=== PATIENT | male | born 1975 | race Caucasian/White ===

== ENCOUNTER 2021-01-18 11:23 | Emergency (ER) | payer SELFPAY ==
[~2021-01-18] VITALS: Ht 177.8 cm; Wt 113.4 kg
[2021-01-18] MEDS ORDERED: IV NORMAL SALINE 500 ML BAG IV ONE (11:45)
[2021-01-18 11:58] LABS: HEMATOCRIT 45.9 % (36.7-47.1); MEAN CORPUSCULAR HEMOGLOBIN 27.3 uug (23.8-33.4); PLATELET COUNT (AUTO) 113 K/uL (152-348)
[2021-01-18 12:05] LABS: CREATININE 1.1 mg/dL (0.6-1.3); POTASSIUM 3.2 mmol/L (3.5-5.1)
[2021-01-18 12:08] LABS: NEUTROPHILS % (MANUAL) 0 % (42-75)
[2021-01-18 12:11] LABS: BILIRUBIN,TOTAL 0.8 mg/dL (0.2-1.0); TOTAL PROTEIN, SERUM 7.9 g/dL (6.4-8.2)
[2021-01-18] MEDS ORDERED: POTASSIUM BICARBONATE/CIT AC 25 MEQ TABLET.EFF PO ONE (12:15)
[2021-01-18] MEDS ORDERED: POTASSIUM BICARBONATE/CIT AC 25 MEQ TABLET.EFF ONE (12:25)
[2021-01-18] MEDS ORDERED: SWABABLE VALVE TRANSFER SET EA MC ONE (13:25)
[2021-01-18] MEDS ORDERED: IV NORMAL SALINE 250 ML IV ONE (13:26)
[2021-01-18] MEDS ORDERED: IOHEXOL 350 100 ML INFUS..BTL ONE (13:26)
[2021-01-18] MEDS ORDERED: ACETAMINOPHEN 650 MG/20.3 ML LIQUID UDC PO ONE (13:45)
[2021-01-18] MEDS ORDERED: ACETAMINOPHEN 650 MG/20.3 ML LIQUID UDC ONE (14:00)
--- NOTE | 2021-01-18 14:50 | NUR ---
Patient discharged to home in stable condition. Written and verbal after care instructions given. Patient verbalizes understanding of instructions. Stressed follow up or return to ER for worsening s/s. Addendum: 01/18/21 at 1456 by MARYCRUZ pt remained on ra with sat of 95-98%.
[2021-01-18 14:57] VITALS: BP 129/70
== END 2021-01-18 14:58 | disposition home or self-care (01) ==
LOC: ER 11:23
DX: U07.1 COVID-19 (principal); R10.9 Unspecified abdominal pain; I51.7 Cardiomegaly; D72.819 Decreased white blood cell count, unspecified; E87.6 Hypokalemia
CPT/HCPCS: 36415; 71045; 71275; 80053; 83690; 84484; 85007; 85025; 85379; 93005; 96360; 99285; Q9967; 70030-TC; A4663; J7030; J7050

== ENCOUNTER 2021-01-20 00:47 | Inpatient (IN) | payer MEDICAID ==
[~2021-01-20] VITALS: Ht 180.3 cm; Wt 120.2 kg
--- NOTE | 2021-01-20 00:56 | NUR ---
Dr. Antonio at bedside for MSE.
[2021-01-20] MEDS ORDERED: HYDROCODONE/APAP 10-325 MG TABLET PO ONE (01:00)
[2021-01-20] MEDS ORDERED: ASPIRIN 81 MG TAB.CHEW PO ONE (01:00)
[2021-01-20] MEDS ORDERED: ONDANSETRON ODT 4 MG TAB.RAPDIS SL ONE (01:00)
[2021-01-20] MEDS ORDERED: ASPIRIN 325 MG TABLET PO ONE (01:00)
[2021-01-20] MEDS ORDERED: ASPIRIN 81 MG TAB.CHEW ONE (01:13)
[2021-01-20] MEDS ORDERED: ONDANSETRON ODT 4 MG TAB.RAPDIS ONE (01:14)
[2021-01-20] MEDS ORDERED: HYDROCODONE/APAP 10-325 MG TABLET ONE (01:14)
--- NOTE | 2021-01-20 01:30 | NUR ---
Xray at bedside.
[2021-01-20 01:40] LABS: HEMATOCRIT 42.8 % (36.7-47.1); MEAN CORPUSCULAR HEMOGLOBIN 27.1 uug (23.8-33.4); MEAN CORPUSCULAR VOLUME 78.8 fL (73.0-96.2); PLATELET COUNT (AUTO) 117 K/uL (152-348)
[2021-01-20 01:50] LABS: CREATININE 1.1 mg/dL (0.6-1.3)
[2021-01-20 02:03] LABS: BILIRUBIN,DIRECT 0.3 mg/dL (0.0-0.2); BILIRUBIN,TOTAL 0.9 mg/dL (0.2-1.0); TOTAL PROTEIN, SERUM 7.7 g/dL (6.4-8.2)
--- NOTE | 2021-01-20 02:07 | NUR ---
Dr. Antonio on panel call with Dr. Adams.
[2021-01-20] MEDS ORDERED: LABETALOL HCL 100 MG/20 ML VIAL IV PRN (02:15)
[2021-01-20] MEDS ORDERED: AZITHROMYCIN IV 500 MG in IV DEXTROSE 5% 250 ML IV ONE (02:15)
[2021-01-20] MEDS ORDERED: hydrALAZINE HCL 20 MG/1 ML VIAL IV PRN (02:15)
[2021-01-20] MEDS ORDERED: LIDOCAINE VISCUS 2% 15 ML UDC MM ONE (02:15)
[2021-01-20] MEDS ORDERED: PANTOPRAZOLE SODIUM IV 40 MG in IV DEXTROSE 5% 100 ML IV ONE (02:15)
[2021-01-20] MEDS ORDERED: ONDANSETRON 4 MG/2 ML VIAL IV PRN (02:15)
[2021-01-20] MEDS ORDERED: DICYCLOMINE HCL LIQ 10 MG/5 ML UDC PO ONE (02:15)
[2021-01-20] MEDS ORDERED: MAG HYDROX/AL HYDROX/SIMETH 30 ML LIQUID UDC PO ONE (02:15)
[2021-01-20] MEDS ORDERED: CEFTRIAXONE 1 G in IV DEXTROSE 5% 50 ML IV ONE (02:15)
[2021-01-20] MEDS ORDERED: PANTOPRAZOLE SODIUM 40 MG VIAL ONE (02:21)
[2021-01-20] MEDS ORDERED: LIDOCAINE VISCUS 2% 15 ML UDC ONE (02:21)
[2021-01-20] MEDS ORDERED: MAG HYDROX/AL HYDROX/SIMETH 30 ML LIQUID UDC ONE (02:22)
[2021-01-20] MEDS ORDERED: DICYCLOMINE HCL LIQ 10 MG/5 ML UDC ONE (02:22)
--- NOTE | 2021-01-20 02:47 | NUR ---
Report given to Baldomero COOPER Medsurg.
[2021-01-20] MEDS ORDERED: POTASSIUM CHLORIDE 20 MEQ TAB.PRT.SR ONE (02:58)
[2021-01-20] MEDS ORDERED: POTASSIUM CHLORIDE 20 MEQ TAB.PRT.SR PO ONE (03:00)
[2021-01-20] MEDS ORDERED: AZITHROMYCIN 500 MG VIAL IV ONE (03:20)
[2021-01-20] MEDS ORDERED: CEFTRIAXONE 1 G VIAL ONE (03:20)
[2021-01-20] MEDS: ACETAMINOPHEN 325 MG TABLET PO PRN ×2 (03:55→20:52)
[2021-01-20] MEDS: HEPARIN SODIUM,PORCINE 5,000 UNITS/ML VIAL SQ SCH ×3 (03:56→20:25)
[2021-01-20 04:00] VITALS: BP 119/61
--- NOTE | 2021-01-20 06:00 | NUR ---
admitted pt to room 324; VSS; afebrile at this time; health education about plan of care for Covid PNM done; needs attended.
[2021-01-20 08:11] LABS: FERRITIN 4024 ng/mL (26-388); LACTATE DEHYDROGENASE 662 U/L (85-227)
[2021-01-20] MEDS: FLUTICASONE/VILANTEROL 1 EACH BLST.W.DEV INH SCH (08:36)
[2021-01-20] MEDS: GUAIFENESIN/DEXTROMETHORPHAN 5 ML UDC PO PRN ×2 (08:36→18:07)
[2021-01-20] MEDS: MORPHINE SULFATE 2 MG/1 ML DISP.SYRIN IV PRN ×3 (11:01→20:14)
[2021-01-20 11:39] VITALS: BP 105/70
[2021-01-20 16:09] VITALS: BP 112/61
--- NOTE | 2021-01-20 16:25 | NUR ---
patient with current temp of 102.5, Dr. Hauser notified Addendum: 01/20/21 at 1633 by NICK VELASQUEZ RN no new orders at this time. patient currently laying in bed in no apparent distress. slight non-productive coughing noted, patient stating having pain prn pain medication administered and tolerated well.
[2021-01-20 20:30] VITALS: BP 126/66
[2021-01-21 00:09] VITALS: BP 116/70
[2021-01-21] MEDS: MORPHINE SULFATE 2 MG/1 ML DISP.SYRIN IV PRN ×4 (03:06→22:10)
[2021-01-21] MEDS: TRAZODONE 100 MG TABLET PO PRN (03:06)
[2021-01-21] MEDS: AZITHROMYCIN 250 MG TABLET PO SCH (04:00)
[2021-01-21] MEDS: ACETAMINOPHEN 325 MG TABLET PO PRN ×2 (04:00→21:22)
[2021-01-21 04:30] VITALS: BP 95/45
--- NOTE | 2021-01-21 05:37 | NUR ---
Pt rested well in between care; cooling measures and Tylenol for fever; morphine given for pain management; call light within reach; safety maintained; . AM meds given early; pt wants to sleep more continue to monitor; continue plan of care.
[2021-01-21 07:17] LABS: HEMATOCRIT 40.8 % (36.7-47.1); MEAN CORPUSCULAR HEMOGLOBIN 27.3 uug (23.8-33.4); MEAN CORPUSCULAR VOLUME 79.2 fL (73.0-96.2); PLATELET COUNT (AUTO) 121 K/uL (152-348)
--- NOTE | 2021-01-21 07:30 | NUR ---
PATIENT IS AWAKE ALERT AND ORIENTED DENIES PAIN S DISCOMFORTS AT THIS TIME STATED HAS ON AND OFF COUGH EPISODES BUT NO COUGH AT THIS TIME REMAIN ON O2 WITH NO SHORTNESS OF BREATH REMAIN ON COVID ISOLATION ORDERED CALL LIGHTS AND HIS PERSONAL BELONGINGS ARE WITHIN EASY REACH AT THIS TIME WILL CONTINUE TO OBSERVE.
[2021-01-21 08:00] LABS: BILIRUBIN,TOTAL 0.7 mg/dL (0.2-1.0); CREATININE 0.9 mg/dL (0.6-1.3); MAGNESIUM 2.4 mg/dL (1.8-2.4); PHOSPHOROUS 3.5 mg/dL (2.5-4.9); POTASSIUM 3.7 mmol/L (3.5-5.1); TOTAL PROTEIN, SERUM 7.3 g/dL (6.4-8.2)
[2021-01-21 08:22] LABS: THYROID STIMULATING HORMONE 0.872 mIU/mL (0.358-3.740)
[2021-01-21] MEDS: HEPARIN SODIUM,PORCINE 5,000 UNITS/ML VIAL SQ SCH ×2 (08:27→21:15)
[2021-01-21] MEDS: DEXAMETHASONE SOD PHOSPHATE 4 MG INJ IV SCH (08:28)
[2021-01-21] MEDS: FLUTICASONE/VILANTEROL 1 EACH BLST.W.DEV INH SCH (09:06)
[2021-01-21] MEDS: GUAIFENESIN/DEXTROMETHORPHAN 5 ML UDC PO PRN ×3 (11:03→20:58)
--- NOTE | 2021-01-21 11:03 | NUR ---
PATIENT IN BED AWAKE ALERT AND ORIENTED STATED DOES NOT FEEL GOOD HAVING GENERALISED PAIN STARTING FROM HIS BACK AND AROUND TO HIS STERNUM COUGHING VERY PROFUSELY VITALS CHECKED TEMP IS 99.9 PULSE IS 82 RESP IS 20 B/P IS 112/70 O2 SAT IS 95 ON 2 LITERS REMAIN ON CONTACT/RESPIRATORY ISOLATION FOR COVID 19 PATIENT REASSURED MEDICATED WITH MORPHINE FOR PAIN AND ROBITUSSIN DM FOR COUGH ORDERED.TELE IS SR CALL LIGHTS AND PERSONAL BELONGINGS ARE WITHIN EASY REACH MADE COMFORTABLE WILL CONTINUE TO OBSERVE.
[2021-01-21 11:09] VITALS: BP 112/70
--- NOTE | 2021-01-21 13:00 | NUR ---
PATIENT IS RESTING AT THIS TIME MORPHINE WAS HELPFUL WILL CONTINUE TO OBSERVE.
--- NOTE | 2021-01-21 15:04 | NUR ---
POOR VEINOUS ACCESS WITH MULTIPLE ATTEMPTS MD NOTIFIED WITH ORDER TO INSERT MIDLINE DICE TABLE PERSON AWARE STATED MID LINE NURSE WILL BE AVAILABLE AT 1500 TODAY.
[2021-01-21 16:51] VITALS: BP 109/73
[2021-01-21 20:00] VITALS: BP 108/72
[2021-01-21] MEDS ORDERED: CEFTRIAXONE 2 G VIAL IM SCH (20:00)
[2021-01-21] MEDS: ALBUTEROL SULFATE 8 GM HFA.AER.AD IH PRN (20:59)
[2021-01-21] MEDS ORDERED: CEFTRIAXONE 1 G VIAL ONE (21:41)
[2021-01-21] MEDS: CEFTRIAXONE 2 G in IV DEXTROSE 5% 100 ML IV SCH (22:11)
[2021-01-22] VITALS (8 sets, daily range): BP systolic 101–118; BP diastolic 64–77
[2021-01-22] MEDS: GUAIFENESIN/DEXTROMETHORPHAN 5 ML UDC PO PRN ×4 (03:28→20:47)
[2021-01-22] MEDS: ACETAMINOPHEN 325 MG TABLET PO PRN ×2 (03:28→20:47)
[2021-01-22] MEDS: MORPHINE SULFATE 2 MG/1 ML DISP.SYRIN IV PRN ×4 (03:31→21:03)
[2021-01-22] MEDS: ALBUTEROL SULFATE 8 GM HFA.AER.AD IH PRN ×2 (05:02→20:30)
--- NOTE | 2021-01-22 05:03 | NUR ---
Patient rested well in between care; pain management with Morphine; inhalers and cough meds taken; needs attended; continue to monitor; continue plan of care.
[2021-01-22] MEDS: AZITHROMYCIN 250 MG TABLET PO SCH (05:55)
[2021-01-22 08:22] LABS: HEMATOCRIT 40.8 % (36.7-47.1); MEAN CORPUSCULAR HEMOGLOBIN 27.1 uug (23.8-33.4); MEAN CORPUSCULAR VOLUME 79.4 fL (73.0-96.2); PLATELET COUNT (AUTO) 147 K/uL (152-348)
[2021-01-22 08:36] LABS: BILIRUBIN,TOTAL 0.6 mg/dL (0.2-1.0); CREATININE 0.9 mg/dL (0.6-1.3); MAGNESIUM 2.9 mg/dL (1.8-2.4); PHOSPHOROUS 3.2 mg/dL (2.5-4.9); POTASSIUM 3.6 mmol/L (3.5-5.1); TOTAL PROTEIN, SERUM 7.8 g/dL (6.4-8.2)
[2021-01-22] MEDS: HEPARIN SODIUM,PORCINE 5,000 UNITS/ML VIAL SQ SCH ×2 (08:41→20:45)
[2021-01-22] MEDS: DEXAMETHASONE SOD PHOSPHATE 4 MG INJ IV SCH (08:42)
[2021-01-22] MEDS: FLUTICASONE/VILANTEROL 1 EACH BLST.W.DEV INH SCH (08:43)
--- NOTE | 2021-01-22 08:45 | NUR ---
PATIENT IN ROOM AND STATED THAT HE COULD NOT BREATH CHECKED HIM AND NOTED THAT HE WAS HAVING SHORTNESS OF BREATH HIS O2 WAS NOT CONNECTED STATED HE WAS JUST IN THE BATHROOM O2 SAT AT 87 PERCENT O2 RECONNECTED AND WAS INCREASED AT THIS TIME TO 5L/M TO ACHIEVE 95 PERCENT PATIENT WAS REEDUCATED THAT HE HAS THE LONG CORD CANULA AND DID NOT NEED TO REMOVE HIS O2 WHEN HE GOES TO THE BATHROOM AND HE EXPRESSED UNDERSTANDING MID LINE REMAINS INTACT AT THIS TIME WILL CONTINUE TO OBSERVE.
--- NOTE | 2021-01-22 09:30 | NUR ---
PATIENT SEEN BY DR HOLLAND WITH NEW ORDERS AND NOTED.
[2021-01-22] MEDS ORDERED: MAG HYDROX/AL HYDROX/SIMETH 30 ML LIQUID UDC PO PRN (10:15)
--- NOTE | 2021-01-22 10:17 | NUR ---
PATIENT IS COUGHING AND C/O GENERALISED PAIN MEDICATED WITH MORPHINE AND ROBITUSSIN ORDERED WILL OBSERVE.
[2021-01-22] MEDS: FAMOTIDINE 20 MG TABLET PO SCH ×2 (11:20→16:36)
--- NOTE | 2021-01-22 12:46 | NUR ---
REMDESIVIR STARTED INFUSING ORDERED WITH NO ADVERSE OR ALLERGIC REACTIONS AT THIS TIME WILL CONTINUE TO OBSERVE.
[2021-01-22] MEDS ORDERED: REMDESIVIR (CHARGED) 200 MG in IV NORMAL SALINE 210 ML IV ONE (13:00)
--- NOTE | 2021-01-22 13:45 | NUR ---
REMDESIVIR INFUSED ORDERED WITH NO ADVERSE OR ALLERGIC REACTIONS AT THIS TIME FLUSHED WITH NORMAL SALINE ORDERED PATIENT TOLERATED WELL
--- NOTE | 2021-01-22 16:36 | NUR ---
MEDICATED WITH MORPHINE AND ROBITUSSIN ORDERED WAS COMPLAINING OF RIB PAIN/GENERALISED WEAKNESS ORDERED MADE COMFORTABLE WILL CONTINUE TO OBSERVE.
--- NOTE | 2021-01-22 18:00 | NUR ---
RESTING NO C/O AT THIS TIME
--- NOTE | 2021-01-22 19:45 | NUR ---
followed up with lab regarding PCR result; none yet; Lab confirmed that PCR was sent and still awaiting result.
[2021-01-22] MEDS: CEFTRIAXONE 2 G in IV DEXTROSE 5% 100 ML IV SCH (20:46)
[2021-01-23] VITALS: BP 106/62
[2021-01-23 04:00] VITALS: BP 103/57
[2021-01-23] MEDS: GUAIFENESIN/DEXTROMETHORPHAN 5 ML UDC PO PRN ×4 (04:18→21:22)
[2021-01-23] MEDS: MORPHINE SULFATE 2 MG/1 ML DISP.SYRIN IV PRN ×4 (04:18→21:23)
[2021-01-23] MEDS: AZITHROMYCIN 250 MG TABLET PO SCH (04:19)
[2021-01-23] MEDS: ALBUTEROL SULFATE 8 GM HFA.AER.AD IH PRN ×2 (04:20→22:22)
[2021-01-23 07:31] LABS: MEAN CORPUSCULAR HEMOGLOBIN 27.2 uug (23.8-33.4); MEAN CORPUSCULAR VOLUME 80.7 fL (73.0-96.2); PLATELET COUNT (AUTO) 188 K/uL (152-348)
[2021-01-23 07:51] LABS: BILIRUBIN,DIRECT 0.2 mg/dL (0.0-0.2); BILIRUBIN,TOTAL 0.6 mg/dL (0.2-1.0); POTASSIUM 4.4 mmol/L (3.5-5.1); TOTAL PROTEIN, SERUM 7.9 g/dL (6.4-8.2)
[2021-01-23] MEDS: FAMOTIDINE 20 MG TABLET PO SCH ×2 (08:18→16:57)
[2021-01-23] MEDS: FLUTICASONE/VILANTEROL 1 EACH BLST.W.DEV INH SCH (08:19)
[2021-01-23] MEDS: HEPARIN SODIUM,PORCINE 5,000 UNITS/ML VIAL SQ SCH ×2 (08:21→20:24)
[2021-01-23] MEDS: DEXAMETHASONE SOD PHOSPHATE 4 MG INJ IV SCH (08:26)
--- NOTE | 2021-01-23 10:26 | NUR ---
COUGHING A LOT AND STATED THAT HE IS IN A LOT OF PAIN MEDICATED WITH COUGH MEDICATION AND MORPHINE MADE COMFORTABLE AND HE EXPRESSED RELIEF
[2021-01-23 12:00] VITALS: BP 111/68
--- NOTE | 2021-01-23 12:00 | NUR ---
DR HOLLAND HERE TO SEE PATIENT WITH NEW ORDERS AND NOTED
[2021-01-23] MEDS: REMDESIVIR (CHARGED) 100 MG in IV NORMAL SALINE 100 ML IV SCH (13:55)
--- NOTE | 2021-01-23 13:55 | NUR ---
REMDISIVIR INFUSSION STARTED ORDERED WITH NO ADVERSE OR ALLERGIC REACTIONS AT THIS TIME.
--- NOTE | 2021-01-23 15:00 | NUR ---
REMDESIVIR INFUSSION COMPLETED ORDERED WITH NO ADVERSE OR ALLERGIC REACTIONS AT THIS TIME REMAIN ON O2 AT 5L WITH NO SOB WILL CONTINUE TO OBSERVE.
[2021-01-23 16:00] VITALS: BP 105/68
--- NOTE | 2021-01-23 17:00 | NUR ---
STATED HIS STERNAL PAIN WAS NECK HE IS COUGHING VERY HARD MEDICATED WITH MORPHINE AND COUGH MEDICATIONS STATED THAT THE MEDICATIONS HELPS A LOT REMAIN ON COVID ISOLATION AND PRECAUTIONS CALL LIGHTS AND HIS PERSONAL BELONGINGS ARE WITHIN EASY REACH WILL CONTINUE TO OBSERVE.
[2021-01-23 20:00] VITALS: BP 106/65
[2021-01-23] MEDS: CEFTRIAXONE 2 G in IV DEXTROSE 5% 100 ML IV SCH (20:05)
[2021-01-23] MEDS: TRAZODONE 100 MG TABLET PO PRN (21:22)
[2021-01-24] VITALS: BP 101/58
--- NOTE | 2021-01-24 | NUR ---
followed up PCR result; Charles lopez the lab reported that his PCR is POSITIVE.
[2021-01-24 04:00] VITALS: BP 100/59
[2021-01-24] MEDS: AZITHROMYCIN 250 MG TABLET PO SCH (05:42)
--- NOTE | 2021-01-24 06:28 | NUR ---
Pt rested well in between care; c/o pain with coughing last night and medicatred with cough syrup and morphine; finished his po zithromax today; continue to monitor; continue plan of care.
[2021-01-24 06:41] LABS: HEMATOCRIT 39.3 % (36.7-47.1); MEAN CORPUSCULAR HEMOGLOBIN 27.5 uug (23.8-33.4); MEAN CORPUSCULAR VOLUME 79.5 fL (73.0-96.2); PLATELET COUNT (AUTO) 202 K/uL (152-348)
[2021-01-24 07:19] LABS: BILIRUBIN,DIRECT 0.2 mg/dL (0.0-0.2); BILIRUBIN,TOTAL 0.7 mg/dL (0.2-1.0); CREATININE 0.9 mg/dL (0.6-1.3); POTASSIUM 3.7 mmol/L (3.5-5.1); TOTAL PROTEIN, SERUM 7.2 g/dL (6.4-8.2)
[2021-01-24] MEDS: DEXAMETHASONE SOD PHOSPHATE 4 MG INJ IV SCH (08:32)
[2021-01-24] MEDS: GUAIFENESIN/DEXTROMETHORPHAN 5 ML UDC PO PRN ×2 (08:32→20:37)
[2021-01-24] MEDS: FAMOTIDINE 20 MG TABLET PO SCH ×2 (08:33→16:01)
[2021-01-24] MEDS: FLUTICASONE/VILANTEROL 1 EACH BLST.W.DEV INH SCH (08:33)
[2021-01-24] MEDS: HEPARIN SODIUM,PORCINE 5,000 UNITS/ML VIAL SQ SCH ×2 (08:34→20:19)
[2021-01-24] MEDS: MORPHINE SULFATE 2 MG/1 ML DISP.SYRIN IV PRN ×2 (09:59→20:38)
[2021-01-24 11:35] VITALS: BP 108/67
[2021-01-24] MEDS: REMDESIVIR (CHARGED) 100 MG in IV NORMAL SALINE 100 ML IV SCH (13:00)
[2021-01-24 15:09] LABS: HEPATITIS A AB, TOTAL Negative; HEPATITIS B SURFACE AG Negative
[2021-01-24 18:21] VITALS: BP 119/68
--- NOTE | 2021-01-24 18:55 | NUR ---
patient is alert, oriented x4, continue on o2 4 liter via nasal canula, no acute distress noted
[2021-01-24 20:00] VITALS: BP 112/70
[2021-01-24] MEDS: CEFTRIAXONE 2 G in IV DEXTROSE 5% 100 ML IV SCH (20:36)
[2021-01-24] MEDS: TRAZODONE 100 MG TABLET PO PRN (20:37)
[2021-01-25] VITALS: BP 106/63
[2021-01-25 04:00] VITALS: BP 108/62
[2021-01-25 06:34] LABS: HEMATOCRIT 40.7 % (36.7-47.1); MEAN CORPUSCULAR HEMOGLOBIN 27.2 uug (23.8-33.4); MEAN CORPUSCULAR VOLUME 79.7 fL (73.0-96.2); PLATELET COUNT (AUTO) 265 K/uL (152-348)
--- NOTE | 2021-01-25 07:35 | NUR ---
Received patient report from restaurant shift supervisor nurse. Arrived to patient's room awake, alert, and oriented x 4. Mid RAMON intact and patent. Bed left in the lowest position with call light within reach. Comfort measures provided.
[2021-01-25 07:51] LABS: BILIRUBIN,DIRECT 0.2 mg/dL (0.0-0.2); BILIRUBIN,TOTAL 0.7 mg/dL (0.2-1.0); CREATININE 0.9 mg/dL (0.6-1.3); POTASSIUM 4.2 mmol/L (3.5-5.1); TOTAL PROTEIN, SERUM 7.9 g/dL (6.4-8.2)
--- NOTE | 2021-01-25 08:00 | NUR ---
awake, alert and oriented, resting in bed, on 4l/nc 02, sat at 95%, no shortness of breath noted at this time, isolation observed, explained plan of care- verbalized understanding, safety measures maintained, call light within reach
[2021-01-25] MEDS: DEXAMETHASONE SOD PHOSPHATE 4 MG INJ IV SCH (08:27)
[2021-01-25] MEDS: FAMOTIDINE 20 MG TABLET PO SCH ×2 (08:27→16:19)
[2021-01-25] MEDS: HEPARIN SODIUM,PORCINE 5,000 UNITS/ML VIAL SQ SCH ×2 (08:29→20:07)
--- NOTE | 2021-01-25 09:30 | NUR ---
seen by dr Lindsey
[2021-01-25] MEDS: FLUTICASONE/VILANTEROL 1 EACH BLST.W.DEV INH SCH (09:56)
[2021-01-25] MEDS: REMDESIVIR (CHARGED) 100 MG in IV NORMAL SALINE 100 ML IV SCH (13:17)
--- NOTE | 2021-01-25 13:17 | NUR ---
Patient received 3/4 bags of Remdesivir 100 mg in IV Normal Saline 100 mL @ 120 mL/hr.
--- NOTE | 2021-01-25 14:58 | NUR ---
Patient showing no signs of adverse effects of Remdesivir infusion. Will continue to monitor patient.
--- NOTE | 2021-01-25 16:14 | NUR ---
Remdesivir infusion completed as ordered with no adverse effects or allergic reactions. Patient currently on 3L saturating at 96-96%. Will continue to monitor patient.
[2021-01-25 16:24] VITALS: BP 100/63
--- NOTE | 2021-01-25 18:17 | NUR ---
Patient showed no signs of distress of discomfort during shift. Patient is AxOx4, currently saturating at 94-95% on 3l T's. Third administration of Remdesivir completed at 1317. Mid Right Upper line is patent and shows no signs of infiltration or discomfort. Bed left in the lowest position with call light within reach. Comfort measures provided. Will endorse to oncoming shift.
--- NOTE | 2021-01-25 19:30 | NUR ---
Received patient lying in bed. AAOX4. In no apparent distress. Denies any pain or SOB. On O2 at 4LPM via NC in place. O2 sat at 97%. NSR on tele with HR of 65/min. Midline on right upper arm intact and patent. COVID precaution observed. Needs assessed and attended to. Safety measure initiated and call jaramillo within reached.
[2021-01-25 20:00] VITALS: BP 104/62
[2021-01-26] VITALS: BP 101/62
[2021-01-26] MEDS: ACETAMINOPHEN 325 MG TABLET PO PRN (02:50)
[2021-01-26 04:00] VITALS: BP 107/55
--- NOTE | 2021-01-26 05:34 | NUR ---
Remains AAOX4. In no acute distress. Denies any pain or SOB. On O2 at 4LPM via NC in place. O2 sat at 97%. NSR, sinus gregorio on tele with HR between 43-80's /min. Midline on right upper arm intact and patent. COVID precaution maintained. Needs attended to and met. Safety measure maintained and call jaramillo within reached.
--- NOTE | 2021-01-26 07:15 | NUR ---
Received patient resting in bed. AOx4. On room air. No signs of acute distress. Patient denies SOB/ . Patient denies pain/ discomfort. NSR on section plotter operator. IV access patent and intact. Call light within reach. Will continue to monitor.
[2021-01-26 07:17] LABS: HEMATOCRIT 40.7 % (36.7-47.1); MEAN CORPUSCULAR HEMOGLOBIN 27.1 uug (23.8-33.4); MEAN CORPUSCULAR VOLUME 79.8 fL (73.0-96.2); PLATELET COUNT (AUTO) 260 K/uL (152-348)
[2021-01-26 08:15] LABS: BILIRUBIN,DIRECT 0.1 mg/dL (0.0-0.2); BILIRUBIN,TOTAL 0.8 mg/dL (0.2-1.0); POTASSIUM 4.1 mmol/L (3.5-5.1); TOTAL PROTEIN, SERUM 7.3 g/dL (6.4-8.2)
[2021-01-26] MEDS: FAMOTIDINE 20 MG TABLET PO SCH (08:17)
[2021-01-26] MEDS: DEXAMETHASONE SOD PHOSPHATE 4 MG INJ IV SCH (08:17)
[2021-01-26] MEDS: FLUTICASONE/VILANTEROL 1 EACH BLST.W.DEV INH SCH (08:17)
[2021-01-26] MEDS: HEPARIN SODIUM,PORCINE 5,000 UNITS/ML VIAL SQ SCH (08:18)
[2021-01-26 08:34] LABS: PHOSPHOROUS 3.6 mg/dL (2.5-4.9)
[2021-01-26 11:44] VITALS: BP 92/62
[2021-01-26] MEDS: REMDESIVIR (CHARGED) 100 MG in IV NORMAL SALINE 100 ML IV SCH (13:20)
--- NOTE | 2021-01-26 16:29 | NUR ---
Patient left against medical advice. Patient denied SOB/ . No signs of acute distress. Explained patient the risks and consequences of leaving against medical advice and patient verbalized understanding. AMA form signed and placed in chart. monitor worker removed. IV access removed. ID armband removed. Belongings accounted for and belongings list signed. Patient left hospital via private car.
== END 2021-01-26 15:20 | disposition left against medical advice (07) | DRG 720 ==
LOC: ER 00:49 → MEDSURG3 02:57 → TELE3 11:27
PROVIDERS: ADMIT Internal Medicine; ATTEND Hospitalist
PROC: XW043E5 Introduction of Remdesivir Anti-infective into Central Vein, Percutaneous Approach, New Technology Group 5 (ICD-10-PCS; principal; 2021-01-22)
PROC: 05HB33Z Insertion of Infusion Device into Right Basilic Vein, Percutaneous Approach (ICD-10-PCS; principal; 2021-01-22)
DX: A41.89 Other specified sepsis (principal); J96.01 Acute respiratory failure with hypoxia; J12.82 Pneumonia due to coronavirus disease 2019; U07.1 COVID-19; E44.0 Moderate protein-calorie malnutrition; D69.6 Thrombocytopenia, unspecified; E87.1 Hypo-osmolality and hyponatremia; I27.20 Pulmonary hypertension, unspecified; E66.9 Obesity, unspecified; Z68.37 Body mass index [BMI] 37.0-37.9, adult; E87.6 Hypokalemia; K76.0 Fatty (change of) liver, not elsewhere classified; R73.03 Prediabetes; Z53.29 Procedure and treatment not carried out because of patient's decision for other reasons; Z91.19 Patient's noncompliance with other medical treatment and regimen
CPT/HCPCS: 36415; 70030-TC; 71045; 76705; 83615; 83735; 84100; 84443; 85025; 85610; 85730; 86140; 86704; 86708; 86803; 87040; 87070; 87340; 87806; 93005; A4663; C9113; G0378; J0456; J0696; J1100; J1644; J2270; J3490; J3535; J7040; J7050; J7060; Q0144; Q0162; U0003